=== PATIENT | male | born 1945 | race Caucasian/White ===

== ENCOUNTER 2022-03-20 11:14 | Emergency (ER) | payer MEDICARE, BC, SELFPAY ==
[2022-03-20 11:21] VITALS: BP 181/78; PULSE 64; RESP 16; TEMP 36.7; O2SAT 97; BMI 25.7
--- NOTE | 2022-03-20 11:47 | CRLHL7_ITS ---
For Patients: As a result of the Century Cures Act, medical imaging exams and procedure reports are released immediately into your electronic medical record. You may view this report before your referring provider. If you have questions, please contact your health care provider. Indication: Chest pain Comparison: None available. Technique: PA and lateral views of the chest Findings: There are small bibasilar pleural effusions with adjacent compressive atelectasis. There is hyperinflation and interstitial prominence likely representing mild pulmonary vascular congestion. The cardiac silhouette is mildly enlarged with median sternotomy wires and cardiac valve prosthesis. The bony thorax is grossly intact. Impression: Small bibasilar pleural effusions with adjacent compressive atelectasis with likely mild superimposed pulmonary edema. Dictated by Carlo Whitfield MD @ 03/20/2022 12:46:17 PM (Electronically Signed)
--- NOTE | 2022-03-20 11:55 | ED.CHESTPAIN ---
HPI - Chest Pain General Date Seen: 03/20/22 Chief Complaint: Chest Pain Stated Complaint: Chest pain, trouble sleeping Time Seen by Provider: 03/20/22 11:26 Source: patient Mode of arrival: ambulatory Limitations: no limitations History of Present Illness HPI narrative: Patient is a 76-year-old gentleman who was told by [facility] to come here for evaluation of chest pain. He has had 2 specific instance the chest pain 1 last night and 1 week ago, he lays on his left-sided his bed, and develops heavy breathing, when asked him to quantify this he tells me that it is not shortness of breath nor is the chest pain it is that he feels like that he can not quite catch his breath. Has to get up and go to sit in his chair, after approximately a couple minutes he will feel a lot better. This never happens when he lays on his back or on his right side only happened when he laid on his left side. Denies any fevers chills or sweats any coughing, wheezing, leg swelling, or chest pain with exertion. He exercises every day either walking or going to the [facility] and doing weights. He can walk 2-3 miles at 3.5 on the treadmill flat, with no problems at all. 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 Followed by Dr. Bradley Ortega from [facility]. No past history of any cardiac stents, he otherwise feels well, he is fully vaccinated for COVID is never had COVID before. Never took any medications for this, and is asymptomatic at the current time. MD complaint: chest discomfort Onset (ago): day(s) Timing of current episode: episodic Prior episodes: Yes Onset: during rest Pain location: substernal and left chest Pain radiation: none Severity: moderate Quality: heaviness Relieving factors: nothing Exacerbating factors: nothing Treatment prior to arrival: none Risk Factors Coronary artery disease risk factors: smoking history, hyperlipidemia and hypertension Thoracic aortic dissection risk factors: none Related Data Home Medications Medication Instructions Recorded Confirmed amlodipine 10 mg tablet 10 mg PO DAILY 03/20/22 03/20/22 atorvastatin 20 mg tablet 20 mg PO HS 03/20/22 03/20/22 lisinopril 10 mg tablet 10 mg PO DAILY 03/20/22 03/20/22 Previous Rx's Medication Instructions Recorded furosemide 20 mg tablet (Lasix) 20 mg PO DAILY #30 tabs 03/20/22 Allergies Allergy/AdvReac Type Severity Reaction Status Date / Time No Known Drug Allergies Allergy Verified 03/20/22 11:29 Review of Systems Status of ROS Reports: 10 or more systems reviewed and unremarkable except as noted in History and below PFSH PFS Social History Smoking Status: Former smoker How often do you have a drink containing alcohol: 2-3 times a week AUDIT-C Alcohol total score: 3 Non-prescribed substance use: denies use Exam Narrative Exam Narrative: Patient is a dalia gentleman seen in room 1 for evaluation he is in no apparent distress, his pupils are equal round reactive to light, TMs are normal, oropharynx is normal his neck is supple full range of motion is elicited, no meningismus, JVP and carotid upstrokes are normal, his chest is good air entry bilaterally with occasional wheezes noted. Heart sounds S1-S2 her normal, I do not hear an S3 or S4, blowing systolic murmur, crescendo type over the right sternal border with radiationTo the aortic area. Created 3/6. Abdomen soft there is no guarding no past splenomegaly, BMI slightly elevated, no pitting edema swelling negative Homans signs good strength in both his upper and lower extremities and symmetrically normal 5/5, and normal pulses noted Const Vital Signs, click to edit/add: Vital Signs - 24 hr 03/20/22 11:21 03/20/22 14:53 03/20/22 15:52 Temperature 98.1 F Pulse Rate [Right Pulse Oximeter] 64 76 71 Respiratory Rate 16 16 16 Blood Pressure [Right Upper Arm] 181/78 H 134/81 146/84 H Pulse Oximetry 97 98 98 Oxygen Delivery Method Room Air Room Air Room Air Documenting provider has reviewed patient's vital signs: yes Course Reevaluation(s) Reevaluation #1: Patient continues to be pain and shortness of breath free, his initial troponin 0.02, we will repeat this 2 hours after he has been here along with his EKG. This may be exacerbation of congestive heart failure as his BNP is elevated, I will discuss this with Cardiology. 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 Cardiology(Dr.Richard Villalta) recommended a little bit of Lasix also, and then consideration of likely going and getting his aortic valve re done. I went over this with the patient in our conversation. Time: 13:36 Vital Signs Vital signs: Initial Vital Signs Temperature 98.1 F 03/20/22 11:21 Temperature Source Temporal Artery Scan 03/20/22 11:21 Pulse Rate 64 03/20/22 11:21 Respiratory Rate 16 03/20/22 11:21 Blood Pressure 181/78 H 03/20/22 11:21 Blood Pressure Mean 112 03/20/22 11:21 Blood Pressure Position Sitting 03/20/22 11:21 Pulse Oximetry 97 03/20/22 11:21 Oxygen Delivery Method 03/20/22 11:21 Vital Signs Temperature 98.1 F 03/20/22 11:21 Pulse Rate 64 03/20/22 11:21 Respiratory Rate 16 03/20/22 11:21 Blood Pressure 181/78 H 03/20/22 11:21 Pulse Oximetry 97 03/20/22 11:21 Oxygen Delivery Method 03/20/22 11:21 Temperature 98.1 F 03/20/22 11:21 Pulse Rate 71 03/20/22 15:52 Respiratory Rate 16 03/20/22 15:52 Blood Pressure 146/84 H 03/20/22 15:52 Pulse Oximetry 98 03/20/22 15:52 Oxygen Delivery Method 03/20/22 15:52 MDM - Chest Pain MDM Narrative Medical decision making narrative: During the evaluation of this patient I considered multiple differential diagnosis is. The life-threatening differential diagnosis include coronary disease/OR, pulmonary embolism, pneumothorax, pneumonia, and aortic dissection. Other differential diagnosis included but were not limited to pericarditis, myocarditis, chest wall pain, GERD, esophageal rupture, rib fracture contusion, pleurisy, as well as other etiologies. Lab Data Attestation: I reviewed the patient's lab results. Labs: Lab Results 03/20/22 03/20/22 03/20/22 Range/Units 11:47 12:20 12:20 WBC 5.76 (4.50-11.00) K/uL RBC 4.47 (4.30-5.90) m/uL Hgb 13.9 (13.5-17.5) gm/dL Hct 41.8 (37.0-53.0) % MCV 94 (80-100) fL MCH 31 (26-34) pg MCHC 33 (32-36) gm/dL RDW Coeff of Sabrina 14.3 (11.5-15.5) % Plt Count 203 (140-440) K/uL Neut % (Auto) 55.6 (42.0-72.0) % Lymph % (Auto) 33.3 (20-44) % Frederick % (Auto) 10.2 (0.0-11.0) % Eos % (Auto) 0.5 (0.0-7.0) % Baso % (Auto) 0.2 (0.0-3.0) % Neut # (Auto) 3.20 (1.7-7.0) K/uL Lymph # (Auto) 1.92 (0.90-2.90) K/uL Frederick # (Auto) 0.60 (0.00-0.90) K/UL Eos # (Auto) 0.03 (0.00-0.50) K/uL Baso # (Auto) 0.01 (0.00-0.30) K/uL Abs Immat Gran (auto) 0.01 (0.00-0.30) K/uL INR (0.91-1.10) APTT (23-33) Seconds D-Dimer Quant (PE/DVT) (0.00-0.50) ug/ml Sodium 138 (135-149) mmol/L Potassium 4.0 (3.6-5.1) mmol/L Chloride 103 (96-114) mmol/L Carbon Dioxide 29 (20-32) mmol/L BUN 28 (7-30) mg/dL Creatinine 0.9 (0.5-1.5) mg/dL Estimated Creat Clear 62.84 Estimated GFR 89 ml/min Glucose 108 (60-115) mg/dL Calcium 9.4 (8.4-10.6) mg/dL C-Reactive Protein < 0.5 L (0.5-1.0) mg/dL NT-Pro-B Natriuret Pep (0-450) PG/mL SARS-CoV-2 (PCR) Negative SARS-CoV-2 (Negative) Influenza Type A (PCR) Negative PCR FLU A (Negative) Influenza Type B (PCR) Negative PCR FLU B (Negative) RSV (PCR) Negative PCR RSV (Negative) POC Troponin I (0.01-0.04) ng/ml 03/20/22 03/20/22 03/20/22 Range/Units 12:20 12:20 12:20 WBC (4.50-11.00) K/uL RBC (4.30-5.90) m/uL Hgb (13.5-17.5) gm/dL Hct (37.0-53.0) % MCV (80-100) fL MCH (26-34) pg MCHC (32-36) gm/dL RDW Coeff of Sabrina (11.5-15.5) % Plt Count (140-440) K/uL Neut % (Auto) (42.0-72.0) % Lymph % (Auto) (20-44) % Frederick % (Auto) (0.0-11.0) % Eos % (Auto) (0.0-7.0) % Baso % (Auto) (0.0-3.0) % Neut # (Auto) (1.7-7.0) K/uL Lymph # (Auto) (0.90-2.90) K/uL Frederick # (Auto) (0.00-0.90) K/UL Eos # (Auto) (0.00-0.50) K/uL Baso # (Auto) (0.00-0.30) K/uL Abs Immat Gran (auto) (0.00-0.30) K/uL INR 1.01 (0.91-1.10) APTT 34 H (23-33) Seconds D-Dimer Quant (PE/DVT) 0.52 H (0.00-0.50) ug/ml Sodium (135-149) mmol/L Potassium (3.6-5.1) mmol/L Chloride (96-114) mmol/L Carbon Dioxide (20-32) mmol/L BUN (7-30) mg/dL Creatinine (0.5-1.5) mg/dL Estimated Creat Clear Estimated GFR ml/min Glucose (60-115) mg/dL Calcium (8.4-10.6) mg/dL C-Reactive Protein (0.5-1.0) mg/dL NT-Pro-B Natriuret Pep 6750 H (0-450) PG/mL SARS-CoV-2 (PCR) (Negative) Influenza Type A (PCR) (Negative) Influenza Type B (PCR) (Negative) RSV (PCR) (Negative) POC Troponin I 0.02 (0.01-0.04) ng/ml 03/20/22 03/20/22 Range/Units 14:29 16:30 WBC (4.50-11.00) K/uL RBC (4.30-5.90) m/uL Hgb (13.5-17.5) gm/dL Hct (37.0-53.0) % MCV (80-100) fL MCH (26-34) pg MCHC (32-36) gm/dL RDW Coeff of Sabrina (11.5-15.5) % Plt Count (140-440) K/uL Neut % (Auto) (42.0-72.0) % Lymph % (Auto) (20-44) % Frederick % (Auto) (0.0-11.0) % Eos % (Auto) (0.0-7.0) % Baso % (Auto) (0.0-3.0) % Neut # (Auto) (1.7-7.0) K/uL Lymph # (Auto) (0.90-2.90) K/uL Frederick # (Auto) (0.00-0.90) K/UL Eos # (Auto) (0.00-0.50) K/uL Baso # (Auto) (0.00-0.30) K/uL Abs Immat Gran (auto) (0.00-0.30) K/uL INR (0.91-1.10) APTT (23-33) Seconds D-Dimer Quant (PE/DVT) (0.00-0.50) ug/ml Sodium (135-149) mmol/L Potassium (3.6-5.1) mmol/L Chloride (96-114) mmol/L Carbon Dioxide (20-32) mmol/L BUN (7-30) mg/dL Creatinine (0.5-1.5) mg/dL Estimated Creat Clear Estimated GFR ml/min Glucose (60-115) mg/dL Calcium (8.4-10.6) mg/dL C-Reactive Protein (0.5-1.0) mg/dL NT-Pro-B Natriuret Pep (0-450) PG/mL SARS-CoV-2 (PCR) (Negative) Influenza Type A (PCR) (Negative) Influenza Type B (PCR) (Negative) RSV (PCR) (Negative) POC Troponin I 0.05 H 0.02 (0.01-0.04) ng/ml ECG Data Attestation: I personally reviewed and interpreted this ECG as follows: Interpretation: Normal sinus rhythm, there is no acute changes, Discharge Plan Discharge Clinical Impression: Diastolic congestive heart failure, Aortic stenosis, Chest pain Patient Disposition: Home, Self-Care Condition: Stable Instructions: Heart Failure (DC), Chest Pain (DC), Aortic Stenosis (ED), Aortic Valve Replacement (DC) Additional Instructions: Home, rest, please call Dr. Cardenas in the morning and make an appointment to follow up with him, also call from Cardiology and I think he probably need to have your aortic valve repair scheduled. The medication as directed I would use 20 mg a day, this will help take off some of the fluid, and hopefully help your breathing and help you not have those episodes at night. If pain gets worse, breathing gets more labored, then please come back. Prescriptions: New furosemide [Lasix] 20 mg tablet 20 mg PO DAILY Qty: 30 2RF No Action amlodipine 10 mg tablet 10 mg PO DAILY atorvastatin 20 mg tablet 20 mg PO HS lisinopril 10 mg tablet 10 mg PO DAILY Follow Up/Referrals: Ketan Cardenas MD [Primary Care Provider] - Stand Alone Forms: [employer] Info Instructions
[2022-03-20 12:36] LABS: Basophils Absolute Auto 0.01 K/uL (0.00-0.30); Basophils Percent Auto 0.2 % (0.0-3.0); Eosinophils Absolute Auto 0.03 K/uL (0.00-0.50); Eosinophils Percent Auto 0.5 % (0.0-7.0); Hematocrit 41.8 % (37.0-53.0); Hemoglobin* 13.9 gm/dL (13.5-17.5); Immature Granulocytes Abs Auto 0.01 K/uL (0.00-0.30); Lymphocytes Absolute Auto 1.92 K/uL (0.90-2.90); Lymphocytes Percent Auto 33.3 % (20-44); Mean Corpuscular HGB Conc 33 gm/dL (32-36); Mean Corpuscular Hemoglobin 31 pg (26-34); Mean Corpuscular Volume 94 fL (80-100); Monocytes Percent Auto 10.2 % (0.0-11.0); Neutrophils Percent Auto 55.6 % (42.0-72.0); Platelet Count* 203 K/uL (140-440); RDW Coefficient of Variation % 14.3 % (11.5-15.5); Red Blood Count 4.47 m/uL (4.30-5.90); Slide Review Reflex No; White Blood Count* 5.76 K/uL (4.50-11.00)
[2022-03-20 12:42] LABS: Troponin, Point-of-Care* 0.02 ng/ml (0.01-0.04)
[2022-03-20 12:48] LABS: Chloride* 103 mmol/L (96-114); Sodium* 138 mmol/L (135-149)
[2022-03-20 12:49] LABS: PCR FLU A Negative PCR FLU A (Negative); PCR FLU B Negative PCR FLU B (Negative); PCR RSV Negative PCR RSV (Negative)
[2022-03-20 12:50] LABS: INR 1.01 (0.91-1.10); Partial Thromboplastin Time* 34 Seconds (23-33); Prothrombin Time 13.7 Seconds
[2022-03-20 12:51] LABS: Carbon Dioxide* 29 mmol/L (20-32); Creatinine* 0.9 mg/dL (0.5-1.5); Est. Creatinine Clearance* 62.84; Estimated Glomerular Filt Rate 89 ml/min
[2022-03-20 12:52] LABS: Blood Urea Nitrogen* 28 mg/dL (7-30); Calcium* 9.4 mg/dL (8.4-10.6); D Dimer Quantitative* 0.52 ug/ml (0.00-0.50); Glucose* 108 mg/dL (60-115)
[2022-03-20 12:52] LABS: SARS PCR* Negative SARS-CoV-2 (Negative)
[2022-03-20 12:57] LABS: C Reactive Protein* < 0.5 mg/dL (0.5-1.0)
[2022-03-20 13:01] LABS: NT Pro B Type NatriureticPept* 6750 PG/mL (0-450)
[2022-03-20 14:39] LABS: Troponin, Point-of-Care* 0.05 ng/ml (0.01-0.04)
[2022-03-20 14:53] VITALS: BP 134/81; PULSE 76; RESP 16; O2SAT 98
[2022-03-20] MEDS: FUROSEMIDE 40 MG TABLET PO (15:50)
[2022-03-20 15:52] VITALS: BP 146/84; PULSE 71; RESP 16; O2SAT 98
[2022-03-20 16:41] LABS: Troponin, Point-of-Care* 0.02 ng/ml (0.01-0.04)
== END 2022-03-20 17:50 | disposition home or self-care (01) ==
PROVIDERS: Emergency Provider Family Medicine; PCP Family Medicine
DX: I11.0 Hypertensive heart disease with heart failure (principal); I50.32 Chronic diastolic (congestive) heart failure; I35.0 Nonrheumatic aortic (valve) stenosis; E78.5 Hyperlipidemia, unspecified; Z87.891 Personal history of nicotine dependence; Z79.899 Other long term (current) drug therapy; Z20.822 Contact with and (suspected) exposure to COVID-19
CPT/HCPCS: 36415; 71046; 80048; 83880; 85025; 85379; 85610; 85730; 86140; 87502; 87634; 87635; 93005; 99284; 99285; A9270

== ENCOUNTER 2023-07-16 07:59 | Day surgery (SDC) | payer MEDICARE, BC, SELFPAY ==
[2023-07-16] VITALS (11 sets, daily range): BP systolic 156–186; BP diastolic 90–106; PULSE 60–68; RESP 12–16; TEMP 36.4–36.6; O2SAT 86–100; BMI 28.0
[2023-07-16] MEDS: LACTATED RINGERS 1000 ML 1,000 ML 100 ML IV (08:25)
[2023-07-16] MEDS: SODIUM CHLORIDE 0.9 % (FLUSH) 10 ML SYRINGE IVF (08:43)
[2023-07-16] MEDS: CEFAZOLIN 2 GM INJ IVP (10:05)
[2023-07-16] MEDS: BUPIVACAINE 0.25% 30 ML 20 ML INJECTION (11:43)
--- NOTE | 2023-07-16 11:54 | P.GSOP_ITS ---
Operative Note Date of procedure: 07/16/23 Pre-op diagnosis: Left inguinal hernia Post-op diagnosis: Same Type of Procedure: Open repair left inguinal hernia Indications: The patient is a 77-year-old male who presented to clinic with a large, symptomatic left inguinal hernia. He had a history of a prior prostatectomy as well as a right inguinal hernia. Therefore after discussion of options we decided upon an open approach. He agreed to proceed with surgery. Procedure Description: After discussing the risks and benefits of the procedure, the patient signed informed consent.? The operative site was marked and the patient was brought to the operating room and placed on the operating table in supine position.? Care was taken to pad the patient's pressure points.?? The patient was then intubated by anesthesia.?? The operative site was then prepped and draped in the usual sterile fashion.? A time-out was then performed. Local anesthetic was injected into the skin and subcutaneous tissue overlying the inguinal canal. An ilioinguinal nerve block was performed. An oblique incision was made over the external ring. Dissection was carried down into the subcutaneous tissue using cautery until the external oblique fascia was encountered. This was cleared off. The external ring was identified and after injection of more local anesthetic, the external oblique was incised using a knife. This was extended using the Metzenbaum scissors with care to dissect the underlying cord structures away from the fascia before cutting. The cord was cleared from the inside of the inguinal canal. A large hernia sac was encountered. Initially it appeared as though it may be a large direct hernia, however as it was slowly dissected free, it appeared to be a large indirect hernia sac. The cord and hernia sac were looped with a Ezekiel drain. I then dissected the hernia sac off of the cord structures with a combination of cautery and blunt dissection. There was a small amount of preperitoneal fat which had also herniated. Once the hernia sac was completely dissected free down to the internal ring, it was open. There were no abdominal structures contained inside. This was ligated with 3-0 Vicryl and the excess hernia sac was discarded. The small amount of preperitoneal fat was pushed back into the abdominal cavity. The large internal ring was narrowed slightly with a 3-0 Vicryl [id number] suture to help keep the intra-abdominal contents reduced during the placement of mesh. There was no direct hernia noted. A piece of polypropylene mesh was then obtained and cut to size. This was secured to the pubic tubercle using to 0 Prolene on a double-armed suture. The Prolene was run along the inguinal ligament inferiorly and along the transversalis fascia superiorly, securing the tails around the cord and re- creating the internal ring. The ring was just large enough to permit my fingertip. The wound was examined for hemostasis which was found to be adequate. The external oblique fascia was then reapproximated with absorbable suture. The wound was then closed in layers including Juan Alberto's fascia and the dermis with absorbable suture. The skin was then closed with a running subcuticular suture. Sterile dressings were applied. Instrument, sponge, and needle counts were correct at the end of the case. Both testicles were found to be in the scrotum at the end the case. The patient was woken and taken to the PACU in stable condition. ? The patient tolerated the procedure well. Anesthesia: GETA Surgeon: Aliza Fish MD Estimated blood loss (mL): 5 Condition: stable Disposition: PACU
--- NOTE | 2023-07-16 12:08 | W.ANESCHARGE ---
Anesthesia Charges Start Date/Time Anesthesia Start Date: 07/16/23 Anesthesia Start Time: 09:56 Stop Date/Time Anesthesia Stop Date: 07/16/23 Anesthesia Stop Time: 12:08 Summary Extremes of Age - Over 70 or under 1: MDA
--- NOTE | 2023-07-16 12:10 | W.ANESCHARGE ---
Anesthesia Charges Start Date/Time Anesthesia Start Date: 07/16/23 Anesthesia Start Time: 09:56 Stop Date/Time Anesthesia Stop Date: 07/16/23 Anesthesia Stop Time: 12:08
== END 2023-07-16 13:53 | disposition home or self-care (01) ==
PROVIDERS: PCP Family Medicine; Visit Provider Surgery
PROC: (CPT 49505; principal; 2023-07-16 10:00)
DX: K40.90 Unilateral inguinal hernia, without obstruction or gangrene, not specified as recurrent (principal)
CPT/HCPCS: 49505; 00830; 99100; C1781; J0330; J0665; J0690; J1100; J2405; J2704; J2710; J3010; J7120